=== PATIENT | male | born 1995 | race Caucasian/White ===

== ENCOUNTER 2018-02-02 23:06 | Emergency (ER) | payer BC ==
[2018-02-03] MEDS ORDERED: ONDANSETRON HCL IV 4 MG/2 ML VIAL IVP ONE (00:01)
[2018-02-03] MEDS ORDERED: KETOROLAC 30 MG/ML VIAL IVP ONE (00:01)
--- NOTE | 2018-02-03 00:05 | Emergency Department Record ---
History of Present Illness - General Chief Complaint: Back Pain/Injury Stated Complaint: LOWER BACK PAIN Time Seen by Provider: 02/03/18 00:01 Source: Patient Mode of Arrival: Ambulatory Limitations: No limitations - History of Present Illness Initial Comments: 22 yo male presents to ED for evaluation of right sided flank pain symptoms that began 4 hours prior to arrival. Patient reports difficulty urinating when his symptoms began as well. Patient reports nausea and vomiting x 1, denies fevers, chills, or recent illness. Patient denies lower extremity weakness or groin numbness. Patient denies a history of similar symptoms previously, and denies health problems at his baseline. MD Complaint: Back pain Onset/Timin -: Hour(s) Similar Symptoms Previously: No Place: Home Severity scale (1-10): 7 Quality: Sharp Consistency: Intermittent, Getting worse Improves With: None Worsens With: None Associated Symptoms: Denies other symptoms - Related Data Previous Rx's Medication Instructions Recorded Cephalexin [Keflex] 500 mg PO TID #20 cap 02/03/18 Allergies Allergy/AdvReac Type Severity Reaction Status Date / Time No Known Drug Allergies Allergy Unverified 06/13/17 08:10 Travel Screening - Travel/Exposure Within Last 30 Days Have you traveled within the last 30 days?: No - Travel/Exposure Within Last Year Have you traveled outside the [place] in the last year?: No - Additonal Travel Details Have you been exposed to anyone with a communicable illness?: No - Travel Symptoms Symptom Screening: None Review of Systems Constitutional: Denies: Chills, Fever, Malaise, Night sweats Eyes: Denies: Eye discharge, Eye pain ENT: Denies: Congestion, Dental pain, Throat pain Respiratory: Denies: Cough, Dyspnea Cardiovascular: Denies: Chest pain, Dyspnea on exertion Endocrine: Denies: Fatigue, Heat or cold intolerance Gastrointestinal: Reports: Nausea, Vomiting. Denies: Abdominal pain Genitourinary: Reports: Retention. Denies: Incontinence Musculoskeletal: Reports: Back pain. Denies: Arthralgia, Gout, Joint swelling Skin: Denies: Bruising, Change in color Neurological: Denies: Abnormal gait, Confusion, Headache, Seizure Psychiatric: Denies: Anxiety Hematological/Lymphatic: Denies: Anemia, Blood Clots Past Medical History - SOCIAL HISTORY Smoking Status: Never smoker Alcohol Use: Occasional Alcohol Use Comment: everyother weekend Drug Use: None - RESPIRATORY Hx Respiratory Disorders: Yes Hx Asthma: Yes - CARDIOVASCULAR Hx Cardio Disorders: No - NEURO Hx Neuro Disorders: No - GI Hx GI Disorders: No - Hx Genitourinary Disorders: No - ENDOCRINE Hx Endocrine Disorders: No - MUSCULOSKELETAL Hx Musculoskeletal Disorders: No - PSYCH Hx Psych Problems: No - HEMATOLOGY/ONCOLOGY Hx Hematology/Oncology Disorders: No Comment:: Eczema Family Medical History Any Significant Family History?: No Hx Diabetes: Brother/Sister, Grandparents Hx Heart Disease: Grandparents Hx HTN: Grandparents Physical Exam - General General Appearance: Alert, Oriented x3, Cooperative, Moderate distress Limitations: No limitations - Head Head exam: Atraumatic, Normocephalic, Normal inspection Head exam detail: negative: Abrasion, Contusion, Gilliland's sign, General tenderness, Hematoma, Laceration - Eye Eye exam: Normal appearance. negative: Conjunctival injection, Periorbital swelling, Periorbital tenderness, Scleral icterus - ENT Ear exam: negative: Auricular hematoma, Auricular trauma Nasal Exam: negative: Active bleeding, Discharge, Dried blood, Foreign body Mouth exam: negative: Drooling, Laceration, Muffled voice, Tongue elevation - Neck Neck exam: Normal inspection. negative: Meningismus, Tenderness - Respiratory Respiratory exam: Normal lung sounds bilaterally. negative: Rales, Respiratory distress, Rhonchi, Stridor - Cardiovascular Cardiovascular Exam: Regular rate, Normal rhythm, Normal heart sounds - GI/Abdominal GI/Abdominal exam: Soft. negative: Rebound, Rigid, Tenderness - Rectal Rectal exam: Deferred - exam: Deferred - Extremities Extremities exam: Normal inspection. negative: Pedal edema, Tenderness - Back Back exam: Reports: CVA tenderness (R). Denies: CVA tenderness (L) - Neurological Neurological exam: Alert, Normal gait, Oriented X3 - Psychiatric Psychiatric exam: Normal affect, Normal mood - Skin Skin exam: Normal color. negative: Abrasion Type of lesion: negative: abrasion Course Vital Signs 02/02/18 23:13 Temperature 97.7 F Pulse Rate 62 Respiratory 20 Rate Blood Pressure 119/83 Pulse Ox 95 - Reevaluation(s) Reevaluation #1: 02/03/18 00:47 Laboratory studies were reviewed and are grossly unremarkable for an acute process. Reevaluation #2: 10/13/18 01:06 CT Abdomen/Pelvis: Moderate dilation of the right ureter with calcified stone in the dependent portion of the bladder C/W recently passed stone. Descending and sigmoid colon are collapsed with thickening of the wall raising the possibility of colitis. No bowel obstruction. Patient was reassessed and reports that his symptoms are significantly improved. UA reviewed: RBC: 3-6 WBC: 6-10 Epi: None Bact: 1+ Will initiate treatment with Keflex as directed. No evidence for obstructing calculus on examination. Patient appears stable for discharge at this time. Medical Decision Making - Lab Data Result diagrams: 02/03/18 00:10 02/03/18 00:10 Disposition Disposition: Discharge Clinical Impression: Kidney stone on right side Disposition: Home, Self-Care Condition: (2) Stable Instructions: Kidney Stones (ED) Additional Instructions: Return to ED if your symptoms worsen or if you have any concerns. Keflex and Ibuprofen as directed. Follow-up with your family doctor in 3-5 days as directed. Prescriptions: Cephalexin [Keflex] 500 mg PO TID #20 cap Forms: Patient Portal Access Time of Disposition: 01:10 Quality - Quality Measures Quality Measures: N/A - Blood Pressure Screening Does Patient Have Any of the Following: No Blood Pressure Classification: Normal BP Reading Systolic Measurement: 107 Diastolic Measurement: 63 Screening for High Blood Pressure: < Normal BP, F/U Not Required > [G8783] Pre-Hypertensive Follow-up Interventions: Referral to alternative/primary care provider.
[2018-02-03] MEDS ORDERED: 0.9 % SODIUM CHLORIDE 1000ML 1,000 ML IV SCH (00:15)
[2018-02-03 00:18] LABS: HEMATOCRIT 42.1 % (42.0-52.0); HEMOGLOBIN 13.3 gm/dl (14.0-18.0); MEAN CELL VOLUME 92.3 fl (81-97); MEAN CORPUSCULAR HGB CONC 31.6 g/dl (32-36); MEAN PLATELET VOLUME 9.1 fl (7.4-10.4); PLATELET COUNT 334 K/uL (130-400); RED BLOOD COUNT 4.56 M/uL (4.40-5.70); WHITE BLOOD COUNT W/O DIFF 8.2 K/uL (4.2-12.2)
[2018-02-03 00:21] LABS: MEAN CORPUSCULAR HEMOGLOBIN 29.1 pg (27-33)
[2018-02-03 00:31] LABS: BLOOD UREA NITROGEN 11 mg/dL (6-20); CREATININE 1.3 mg/dL (0.7-1.2); EST GLOMERULAR FILTRATION RATE > 60 mL/min; TOTAL PROTEIN 7.8 g/dL (6.6-8.7)
[2018-02-03 00:33] LABS: GLUCOSE,RANDOM 112 mg/dL (74-109); PLATELET ESTIMATE NORMAL (NORMAL)
[2018-02-03 00:36] LABS: ALB/GLOB RATIO 1.4 (1.1-1.8); ALBUMIN 4.6 g/dL (4.0-5.0); ALKALINE PHOSPHATASE 61 U/L (40-129); ALT/SGPT 87 U/L (<41); AST/SGOT 52 U/L (10.0-50.0)
[2018-02-03 00:59] LABS: URINE APPEARANCE SL CLOUDY; URINE BILIRUBIN NEGATIVE (NEGATIVE); URINE BLOOD MODERATE (NEGATIVE); URINE COLOR YELLOW; URINE GLUCOSE (UA) NEGATIVE (NEGATIVE); URINE KETONE NEGATIVE (NEGATIVE); URINE LEUKOCYTE ESTERASE NEGATIVE (NEGATIVE); URINE NITRITE NEGATIVE (NEGATIVE); URINE PROTEIN NEGATIVE (NEGATIVE); URINE UROBILINOGEN 0.2 E.U./dL (0.20 - 1.00)
[2018-02-03 01:08] LABS: URINE BACTERIA 1+; URINE EPITHELIAL CELLS NONE SEEN (FEW)
[2018-02-03] MEDS ORDERED: CEPHALEXIN 500 MG CAPSULE PO STA (01:14)
--- NOTE | 2018-02-05 15:01 | CT SCAN REPORT ---
EXAM: CT SCAN OF THE ABDOMEN AND PELVIS HISTORY: PATIENT HAS LOWER RIGHT FLANK PAIN. TECHNIQUE: Serial axial CT scan of the abdomen and pelvis was performed at 2.5 mm intervals from the diaphragm down to the pubic symphysis without the use of intravenous or oral contrast. No comparison studies are available. FINDINGS: The lung windows of the lung bases demonstrate no CT evidence of a focal infiltrate or pleural effusion. The visualized heart size and contour is within normal limits. The liver demonstrates diffuse fatty infiltration. No suspicious focal hepatic lesions are identified. Size and contour of the liver is within normal limits. The spleen, pancreas, adrenal glands, and gallbladder are unremarkable. There is minimal right sided hydroureter. No significant right sided hydronephrosis is noted. There is mild right periatrial fat stranding. Within the dependent portion of the urinary bladder trigone, there is a 3.7 mm calculus. These findings suggest recent passage of this calculus from the distal ureter into the urinary bladder. There is no CT evidence of left sided hydronephrosis or hydroureter. The contour and caliber of the noncontrasted abdominal aorta is within normal limits. There is no CT evidence of retroperitoneal, pelvic or inguinal lymphadenopathy. The bowel gas pattern is nonspecific and nonobstructive. There is no CT evidence of free intraperitoneal fluid or free intraperitoneal air. The appendix is clearly visualized and there is no CT evidence of appendicitis. The urinary bladder demonstrates the dependent calculus as discussed above, otherwise the urinary bladder is unremarkable. The bone windows demonstrate no CT evidence of a fracture or dislocation of the visualized osseous structures. IMPRESSION: 1. DIFFUSE HEPATIC STEATOSIS. 2. 3.5 MM CALCULUS IS NOTED WITHIN THE DEPENDENT PORTION OF THE URINARY BLADDER TRIGONE. THERE IS MILD RIGHT SIDED HYDROURETER. THESE FINDINGS SUGGEST RECENT PASSAGE OF THIS CALCULUS INTO THE URINARY BLADDER. JOB NUMBER: [id number] [facility]
== END 2018-02-03 01:36 | disposition home or self-care (01) ==
LOC: ER 23:06
DX: N20.0 Calculus of kidney (principal); M54.5 Low back pain
CPT/HCPCS: 99284 ×2; 96374; 96375; 80053; 81001; 85027; 74176; J1885; J2405; J7030

== ENCOUNTER 2018-10-13 06:57 | Emergency (ER) | payer SELFPAY ==
--- NOTE | 2018-10-13 08:10 | Emergency Department Record ---
History of Present Illness - General Chief Complaint: Ankle/Foot Injury Stated Complaint: LEFT FOOT PAIN Time Seen by Provider: 10/13/18 07:06 Source: Patient Mode of Arrival: Ambulatory Limitations: No limitations - History of Present Illness Initial Comments: pt c/o pain in his foot. he has had problems with this foot in the past and denies new injury but states he has had difficulty bearing weight. he was seen by [facility] and he has had a week off work. he just went back to work and had difficulty standing MD Complaint: Foot injury Onset/Timin -: Days(s) Injury: Foot: Left Type of Injury: Other Place: Home Severity: Moderate Severity scale (1-10): 6 Improves With: Nothing Worsens With: Weight bearing Context: Walking Associated Symptoms: Able to partially bear weight - Related Data Previous Rx's Medication Instructions Recorded Indomethacin [Indocin] 50 mg PO TID #14 cap 10/13/18 Allergies Allergy/AdvReac Type Severity Reaction Status Date / Time No Known Drug Allergies Allergy Verified 10/13/18 07:04 Travel Screening - Travel/Exposure Within Last 30 Days Have you traveled within the last 30 days?: No - Travel/Exposure Within Last Year Have you traveled outside the [place] in the last year?: No - Additonal Travel Details Have you been exposed to anyone with a communicable illness?: No - Travel Symptoms Symptom Screening: None Review of Systems Reviewed: No additional complaints except as noted below Constitutional: Reports: As per HPI. Denies: Chills, Fever, Malaise, Night sweats, Weakness, Weight change Eyes: Reports: As per HPI. Denies: Eye discharge, Eye pain, Photophobia, Vision change ENT: Reports: As per HPI. Denies: Congestion, Dental pain, Ear pain, Epistaxis, Hearing loss, Throat pain Respiratory: Reports: As per HPI. Denies: Cough, Dyspnea, Hemoptysis, Stridor, Wheezes Cardiovascular: Reports: As per HPI. Denies: Arrhythmia, Chest pain, Dyspnea on exertion, Edema, Murmurs, Orthopnea, Palpitations, Paroxysmal nocturnal dyspnea, Rheumatic Fever, Syncope Endocrine: Reports: As per HPI. Denies: Fatigue, Heat or cold intolerance, Polydipsia, Polyuria Gastrointestinal: Reports: As per HPI. Denies: Abdominal pain, Constipation, Diarrhea, Hematemesis, Hematochezia, Melena, Nausea, Vomiting Genitourinary: Reports: As per HPI. Denies: Dysuria, Frequency, Hematuria, Incontinence, Retention, Testicular pain, Testicular mass, Urgency Musculoskeletal: Reports: As per HPI. Denies: Arthralgia, Back pain, Gout, Joint swelling, Myalgia, Neck pain Skin: Reports: As per HPI. Denies: Bruising, Change in color, Change in hair/nails, Lesions, Pruritus, Rash Neurological: Reports: As per HPI. Denies: Abnormal gait, Confusion, Headache, Numbness, Paresthesias, Seizure, Tingling, Tremors, Vertigo, Weakness Psychiatric: Reports: As per HPI. Denies: Anxiety, Auditory hallucinations, Depression, Homicidal thoughts, Suicidal thoughts, Visual hallucinations Hematological/Lymphatic: Reports: As per HPI. Denies: Anemia, Blood Clots, Easy bleeding, Easy bruising, Swollen glands Past Medical History - SOCIAL HISTORY Smoking Status: Never smoker Alcohol Use: Occasional Drug Use: None - RESPIRATORY Hx Respiratory Disorders: Yes Hx Asthma: Yes - CARDIOVASCULAR Hx Cardio Disorders: No - NEURO Hx Neuro Disorders: No - GI Hx GI Disorders: No - Hx Genitourinary Disorders: No - ENDOCRINE Hx Endocrine Disorders: No - MUSCULOSKELETAL Hx Musculoskeletal Disorders: No - PSYCH Hx Psych Problems: No - HEMATOLOGY/ONCOLOGY Hx Hematology/Oncology Disorders: No Comment:: Eczema Family Medical History Any Significant Family History?: Yes Hx Diabetes: Brother/Sister, Grandparents Hx Heart Disease: Grandparents Hx HTN: Grandparents Physical Exam - General General Appearance: Alert, Oriented x3, Cooperative, No acute distress - Head Head exam: Normal inspection - Eye Eye exam: Normal appearance, PERRL, EOMI Pupils: Normal accommodation - ENT ENT exam: Normal exam, Mucous membranes moist, Normal external ear exam, Normal orophraynx Ear exam: Normal external inspection. negative: External canal tenderness Nasal Exam: Normal inspection. negative: Discharge, Sinus tenderness Mouth exam: Normal external inspection, Tongue normal Teeth exam: Normal inspection. negative: Dental caries Throat exam: Normal inspection. negative: Tonsillar erythema, Tonsillar exudate - Neck Neck exam: Normal inspection, Full ROM. negative: Tenderness - Respiratory Respiratory exam: Normal lung sounds bilaterally. negative: Respiratory distress - Cardiovascular Cardiovascular Exam: Regular rate, Normal rhythm, Normal heart sounds - GI/Abdominal GI/Abdominal exam: Soft, Normal bowel sounds. negative: Tenderness - Rectal Rectal exam: Deferred - exam: Deferred - Extremities Extremities exam: Normal inspection, Full ROM, Normal capillary refill, Tenderness (l foot) - Back Back exam: Reports: Normal inspection, Full ROM. Denies: Muscle spasm, Rash noted, Tenderness - Neurological Neurological exam: Alert, Normal gait, Oriented X3, Reflexes normal - Psychiatric Psychiatric exam: Normal affect, Normal mood - Skin Skin exam: Dry, Intact, Normal color, Warm Course Vital Signs 10/13/18 07:05 Temperature 97.9 F Pulse Rate 74 Respiratory 18 Rate Blood Pressure 125/80 Pulse Ox 98 Disposition Disposition: Discharge Clinical Impression: Foot pain, left Disposition: Home, Self-Care Condition: (1) Good Instructions: Foot Contusion (ED), Arthralgia (ED) Additional Instructions: follow up with dr peralta. return sooner if worse. Prescriptions: Indomethacin [Indocin] 50 mg PO TID #14 cap Referrals: RALF PERALTA [DOCTOR OF OSTEOPATH] - [facility] [Provider Group] Forms: Patient Portal Access, Return to Work/School Quality - Quality Measures Quality Measures: N/A - Blood Pressure Screening Does Patient Have Any of the Following: No Blood Pressure Classification: Pre-Hypertensive BP Reading Systolic Measurement: 125 Diastolic Measurement: 80 Screening for High Blood Pressure: < Pre-Hypertensive BP, F/U Documented > [G8950] Pre-Hypertensive Follow-up Interventions: Follow-up with rescreen every year.
--- NOTE | 2018-10-15 05:58 | RADIOLOGY REPORT ---
DATE: 10/13/2018 at 0733. EXAM: LEFT FOOT, THREE VIEWS. HISTORY: GENERALIZED PAIN. NO KNOWN INJURY. HISTORY OF GOUT. TECHNIQUE: Three views of the left foot. COMPARISON: Two views of the left foot dated 10/03/2018. ENCOUNTER: Initial. FINDINGS: There is normal bone mineralization. No fracture, dislocation, or destructive bone lesion is seen. There is developmental beaking of the dorsal margin of the talar neck. The articular relations are grossly maintained. No periarticular erosion. No suspicious focal soft tissue abnormality. IMPRESSION: NO ACUTE BONE NOR JOINT ABNORMALITY. MILD DEVELOPMENTAL BEAKING INVOLVING THE DORSAL MARGIN OF THE TALAR NECK. [facility]: [id number] [facility]
== END 2018-10-13 08:42 | disposition home or self-care (01) ==
LOC: ER 06:57
DX: M79.672 Pain in left foot (principal)
CPT/HCPCS: 99283